=== PATIENT | female | born 1975 | race Caucasian/White ===

== ENCOUNTER → 2020-07-30 | Outpatient (CLI) | payer BC, OTHER ==
[2020-07-30 12:52] LABS: HEMOGLOBIN 14.6 gm/dl (12.3-15.3); RED BLOOD COUNT 4.83 M/UL (4.00-5.10); WHITE BLOOD COUNT 5.3 K/UL (4.5-11.0)
[2020-07-30 13:18] LABS: BUN/CREATININE RATIO 18 (0-10)
[2020-07-31 08:14] LABS: HBSAG SCREEN Negative (Negative); HEP B CORE AB, TOT Negative (Negative)
[2020-07-31 10:13] LABS: HCV AB <0.1 (0.0-0.9)
[2020-07-31 15:14] LABS: ANGIOTENSIN-CONVERTING ENZYME 55 U/L (14-82)
[2020-08-02 19:09] LABS: QUANTIFERON MITOGEN VALUE >10.00 IU/mL (.); QUANTIFERON NIL VALUE 0.12 IU/mL (.); QUANTIFERON TB1 AG VALUE 0.11 IU/mL (.); QUANTIFERON TB2 AG VALUE 0.11 IU/mL (.); QUANTIFERON-TB GOLD PLUS Negative (Negative)
== END ==
LOC: LAB 12:12
PROVIDERS: Internal Medicine
DX: D89.89 Other specified disorders involving the immune mechanism, not elsewhere classified (principal); M25.50 Pain in unspecified joint; R76.0 Raised antibody titer; M24.50 Contracture, unspecified joint; Z79.899 Other long term (current) drug therapy; M19.041 Primary osteoarthritis, right hand
CPT/HCPCS: 36415; 73130; 80053; 82164; 83520; 85025; 85652; 86140; 86704; 86803; 87340

== ENCOUNTER → 2020-11-05 | Outpatient (CLI) | payer BC, OTHER ==
[2020-11-05 13:49] LABS: HEMOGLOBIN 13.2 gm/dl (12.3-15.3); RED BLOOD COUNT 4.34 M/UL (4.00-5.10); WHITE BLOOD COUNT 4.5 K/UL (4.5-11.0)
[2020-11-05 14:39] LABS: BUN/CREATININE RATIO 17 (0-10)
== END ==
LOC: LAB 13:04
PROVIDERS: Internal Medicine
DX: Z51.81 Encounter for therapeutic drug level monitoring (principal); Z79.899 Other long term (current) drug therapy
CPT/HCPCS: 36415; 80053; 85025

== ENCOUNTER → 2020-12-25 | Outpatient (CLI) | payer BC | LOC: OPSV 10:00 | DX: M06.9 Rheumatoid arthritis, unspecified (principal) | CPT/HCPCS: 96365; 96375; J1602; J2920 ==

== ENCOUNTER → 2021-01-22 | Outpatient (CLI) | payer BC ==
[~2021-01-22] VITALS: Ht 152.4 cm; Wt 56.7 kg
== END ==
LOC: OPSV 09:51
DX: M06.9 Rheumatoid arthritis, unspecified (principal)
CPT/HCPCS: 96365; 96375; J1602; J2920

== ENCOUNTER → 2021-03-23 | Outpatient (CLI) | payer BC ==
[~2021-03-23] VITALS: Ht 152.4 cm; Wt 56.7 kg
[2021-03-23 14:26] LABS: HEMOGLOBIN 14.9 gm/dl (12.3-15.3); RED BLOOD COUNT 4.77 M/UL (4.00-5.10)
[2021-03-23 14:55] LABS: BUN/CREATININE RATIO 18 (0-10)
== END ==
LOC: OPSV 03-19 11:00
PROVIDERS: Nurse Practitioner Family
DX: M06.09 Rheumatoid arthritis without rheumatoid factor, multiple sites (principal); Z79.899 Other long term (current) drug therapy
CPT/HCPCS: 36415; 80053; 85025; 85652; 86140; 96365; 96375; J1602; J2920

== ENCOUNTER → 2021-05-18 | Outpatient (CLI) | payer BC ==
[~2021-05-18] VITALS: Ht 152.4 cm; Wt 56.7 kg
== END ==
LOC: OPSV 14:00
DX: M06.09 Rheumatoid arthritis without rheumatoid factor, multiple sites (principal)
CPT/HCPCS: 96365; 96375; J1602; J2920

== ENCOUNTER → 2021-07-20 | Outpatient (CLI) | payer BC ==
[~2021-07-20] VITALS: Ht 152.4 cm; Wt 56.7 kg
== END ==
LOC: OPSV 07-13 14:00
DX: M06.09 Rheumatoid arthritis without rheumatoid factor, multiple sites (principal)
CPT/HCPCS: 96365; 96375; J1602; J2920

== ENCOUNTER → 2021-09-14 | Outpatient (CLI) | payer BC ==
[~2021-09-14] VITALS: Ht 152.4 cm; Wt 56.7 kg
== END ==
LOC: OPSV 14:00
DX: M06.09 Rheumatoid arthritis without rheumatoid factor, multiple sites (principal)
CPT/HCPCS: 96365; 96375; J1602; J2920